=== PATIENT | male | born 1950 | race Caucasian/White ===

== ENCOUNTER → 2023-08-07 12:28 | Outpatient (REF) | payer BC, SELFPAY | LOC: RAD 12:28 | PROVIDERS: ATTENDING PHYSICIAN Internal Medicine; FAMILY PHYSICIAN Physician Assistant | DX: M54.50 Low back pain, unspecified (principal); M81.0 Age-related osteoporosis without current pathological fracture | CPT/HCPCS: 71046; 77080 ==

== ENCOUNTER 2024-07-31 06:19 | Day surgery (SDC) | payer BC, SELFPAY | END 2024-07-31 12:43 | disposition home or self-care (01) | LOC: GI 06:19 | PROVIDERS: ATTENDING PHYSICIAN Internal Medicine Gastroenterology | DX: Z12.11 Encounter for screening for malignant neoplasm of colon (principal); K64.8 Other hemorrhoids; K57.30 Diverticulosis of large intestine without perforation or abscess without bleeding; Z86.0100 Personal history of colon polyps, unspecified | CPT/HCPCS: G0105 ==